=== PATIENT | female | born 1980 | race Caucasian/White ===

== ENCOUNTER 2020-04-20 04:14 | Emergency (ER) | payer SELFPAY ==
[2020-04-20 04:45] LABS: Bilirubin Negative (Negative); Blood, Urine Negative (Negative); Clarity Clear (Clear); Glucose, Urine (Dipstick) Negative (Negative); Ketone, Urine Negative (Negative); Leukocyte Large (Negative); Nitrite Negative (Negative); Protein, Urine (Dipstick) Negative (Neg-Trace); Specific Gravity, Urine 1.015 (1.005-1.030); Urobilinogen 0.2 mg/dL (Less than 2)
[2020-04-20 04:47] LABS: RBC/HPF None Seen HPF (0-3); Squamous Epithelial 0-3 HPF (0-3)
[2020-04-20 04:48] LABS: Bacteria/HPF 1+ HPF (None Seen)
[2020-04-20] MEDS ORDERED: Ondansetron ODT 4 MG TAB ONE (05:05)
[2020-04-20] MEDS ORDERED: Azithromycin 250 MG TAB ONE (05:05)
[2020-04-20] MEDS ORDERED: Lidocaine 1% (PF) 30 ML VIAL ONE (05:06)
[2020-04-20] MEDS ORDERED: cefTRIAXone\\ROCEPHIN 1 GM VIAL ONE (05:06)
[2020-04-20] MEDS ORDERED: Naproxen 500 MG TAB ONE (05:23)
== END 2020-04-20 05:30 | disposition home or self-care (01) ==
LOC: NAV ERS 04:14
DX: N39.0 Urinary tract infection, site not specified (principal); F17.210 Nicotine dependence, cigarettes, uncomplicated
CPT/HCPCS: 81003; 81015; 96372; 99284; J0696; J2001; Q0162